=== PATIENT | female | born 1940 | race Caucasian/White ===

== ENCOUNTER 2017-01-05 15:50 | Emergency (ER) | payer MEDICARE ==
[2017-01-05 16:47] VITALS: BP 119/88
--- NOTE | 2017-01-05 17:14 | UC ---
Minor Trauma HPI - HPI Summary HPI Summary: PATIENT PRESENTS S/P MECHANICAL FALL FROM THIS MORNING WITH PAIN IN THE NOSE AND LEFT KNEE. SHE NOTES TO ECCHYMOSIS AROUND THE RIGHT CHEEK, THE NASAL BRIDGE AND SWELLING OVER THE LEFT KNEE. DENIES COLOR OR TEMPERATURE CHANGES OVER THE LEFT KNEE. SHE DENIES PREVIOUS INJURIES TO BOTH. SHE HAS BEEN AMBULATING WELL, BUT WITH PAIN. SHE IS CONCERNED OVER A FX NOSE AND HAS CHEEK PAIN, BUT NO DEFORMITIES ARE NOTED. SHE IS OTHERWISE HEALTHY. - History of Current Complaint Chief Complaint: UCUpperExtremity Stated Complaint: S/P FALL FACE/NOSE LEFT KNEE Time Seen by Provider: 01/05/17 16:59 Hx Obtained From: Patient ?: No Onset/Duration: Sudden Onset Onset Of Pain: Post Accident Severity Initially: Moderate Severity Currently: Moderate Pain Intensity: 5 Pain Scale Used: 0-10 Numeric Mechanism Of Injury: Blunt Trauma Aggravating Factor(s): Ambulation Alleviating Factor(s): Ice Associated Signs And Symptoms: Positive: Ecchymosis, Swelling - Risk Factors Penetrating Injury Risk Factors: Negative Compartment Syndrome Risk Factors: Pain - Allergies/Home Medications Allergies/Adverse Reactions: Allergies Allergy/AdvReac Type Severity Reaction Status Date / Time Aspirin [From Aggrenox] Allergy Vomiting Verified 03/08/16 16:08 Dipyridamole [From Aggrenox] Allergy Vomiting Verified 03/08/16 16:08 PMH/Surg Hx/FS Hx/Imm Hx Previously Healthy: Yes Endocrine History Of: Reports: Thyroid Disease - cyst Cardiovascular History Of: Denies: Deep Vein Thrombosis Respiratory History Of: Denies: Asthma, Pneumonia GI/ History Of: Denies: Renal Disease Other History Of: Anticoagulant Therapy - aggrenox for poss CVA, but doesn't take anymore - Surgical History Surgical History: Yes Surgery Procedure, Year, and Place: BLADDER--2012. HYSTERECTOMY--1983. LEFT FOOT SURGERY - Family History Known Family History: Positive: Unknown - Social History Occupation: Unemployed Lives: With Family Alcohol Use: None Substance Use Type: None Smoking Status (MU): Never Smoked Tobacco Review of Systems Constitutional: Negative Skin: Bruising Eyes: Negative ENT: Negative Respiratory: Negative Cardiovascular: Negative Motor: Decreased ROM - LEFT KNEE ROM LIMITED Neurovascular: Negative Musculoskeletal: Arthralgia - LEFT KNEE WITH SWELLING Neurological: Negative Psychological: Negative All Other Systems Reviewed And Are Negative: Yes Physical Exam Triage Information Reviewed: Yes Appearance: Well-Appearing, No Pain Distress, Well-Nourished, Signs of Trauma Vital Signs: Initial Vital Signs Temp 99.4 F 01/05/17 16:36 Pulse 98 01/05/17 16:36 Resp 18 01/05/17 16:36 BP 119/88 01/05/17 16:36 Pulse Ox 97 01/05/17 16:36 Vital Signs Reviewed: Yes Eye Exam: Normal Eyes: Positive: Conjunctiva Clear ENT: Positive: Other: - DRIED BLOOD IN NARES Dental Exam: Normal Neck exam: Normal Neck: Positive: Supple Respiratory: Positive: Chest non-tender, Lungs clear, Normal breath sounds Cardiovascular Exam: Normal Cardiovascular: Positive: RRR Musculoskeletal: Positive: Strength Limited @ - PAIN WITH LEFT KNEE EXTENSION, ROM Limited @ Neurological Exam: Normal Neurological: Positive: Alert Psychological Exam: Normal Psychological: Positive: Normal Response To Family Skin Exam: Normal Minor Trauma Course/Dx - Course Course Of Treatment: PATIENT SENT TO XRAY - NASAL BONES AND LEFT KNEE. ANTERIOR NASAL BONE FX NOTED. KNEE SWELLING, BUT NO FRACTURE. WILL ENCOURAGE FOLLOW UP WITH EENT IN 1-2 DAYS AND ORTHO NEEDED. PATIENT IS OK WITH DISCHARGE PLAN. AUNDREA WRAPPED KNEE. - Differential Dx/Diagnosis Differential Diagnosis/HQI/PQRI: Contusion(s), Fracture, Hematoma(s), Sprain, Strain Provider Diagnoses: ANTERIOR NASAL FRACTURE Discharge - Discharge Plan Condition: Stable Disposition: HOME Patient Education Materials: Nasal Fracture (ED), Knee Pain (ED) Referrals: Humberto Parrish MD [Medical Doctor] - Alejandro Boo MD [Medical Doctor] - Naman Guerrero MD [Primary Care Provider] - Additional Instructions: Follow up with Dr. Boo. Follow up with Dr. Parrish if symptoms persist. Continue with ice over the knee. Ibuprofen 600mg three times daily for pain and inflammation Keep knee wrapped for 3-4 days
--- NOTE | 2017-01-05 17:43 | RAD ---
INDICATION: Nasal bone injury COMPARISON: None TECHNIQUE: Routine 3 view imaging was performed. FINDINGS: There is a nondisplaced fracture of the tip of the anterior nasal spine. The nasal process of the maxilla is intact. The visualized paranasal sinuses are clear. The soft tissue elements are normal. IMPRESSION: NONDISPLACED FRACTURE ANTERIOR NASAL BONE
--- NOTE | 2017-01-05 17:43 | RAD ---
INDICATION: Left knee injury COMPARISON: None TECHNIQUE: AP, lateral, tunnel, and sunrise views were obtained. FINDINGS: There are no acute bony findings. There is minor patellofemoral spurring. The knee articulates normally. There is prepatellar soft tissue swelling with an abrasion. IMPRESSION: THERE IS PREPATELLAR SOFT TISSUE SWELLING WITH AN ABRASION. THERE IS NO ACUTE FRACTURE.
== END 2017-01-05 18:11 | disposition home or self-care (01) ==
LOC: UCCORT 15:50
DX: S02.2XXA Fracture of nasal bones, initial encounter for closed fracture (principal); S80.212A Abrasion, left knee, initial encounter; W19.XXXA Unspecified fall, initial encounter; Y93.9 Activity, unspecified; Y92.9 Unspecified place or not applicable; Z88.6 Allergy status to analgesic agent; Z90.710 Acquired absence of both cervix and uterus
CPT/HCPCS: 70160; 99211; G0463

== ENCOUNTER 2019-04-04 22:03 | Emergency (ER) | payer MEDICARE, OTHER ==
[2019-04-04] MEDS ORDERED: Tetan/Diph/Pertus SYR(Tdap)* 0.5 ML SYR(BOOSTRIX) use SYR contains LATEX IM ONE (22:20)
[2019-04-04] MEDS ORDERED: Cephalexin CAP* 500 MG PO ONE (22:20)
[2019-04-04 22:21] VITALS: BP 125/55
--- NOTE | 2019-04-04 22:24 | UC ---
Skin Complaint HPI - HPI Summary HPI Summary: 79-year-old woman comes in with a chief complaint of left leg injury. Patient reports a week ago at work she struck her left leg. She's had some pain there but its gradually developed into some redness. There was a abrasion at the site. She has been trying to clean it and is just getting worse. Denies any fevers or chills. No drainage from the wound. - History of Current Complaint Time Seen by Provider: 04/04/19 22:04 Stated Complaint: LEFT LEG INJURY - Allergy/Home Medications Allergies/Adverse Reactions: Allergies Allergy/AdvReac Type Severity Reaction Status Date / Time aspirin [From Aggrenox] Allergy Vomiting Verified 04/04/19 22:22 dipyridamole [From Aggrenox] Allergy Vomiting Verified 04/04/19 22:22 Home Medications: Home Medications Pitavastatin Calcium [Livalo] 4 mg PO DAILY 04/04/19 [History Confirmed 04/04/19 ] PMH/Surg Hx/FS Hx/Imm Hx Previously Healthy: Yes Other History Of: Anticoagulant Therapy - aggrenox for poss CVA, but doesn't take anymore - Surgical History Surgical History: Yes Surgery Procedure, Year, and Place: BLADDER--2012. HYSTERECTOMY--1983. LEFT FOOT SURGERY - Family History Known Family History: Positive: Unknown - Social History Alcohol Use: None Substance Use Type: None Smoking Status (MU): Never Smoked Tobacco Review of Systems All Other Systems Reviewed And Are Negative: Yes Constitutional: Positive: Negative Skin: Positive: Other - SEE HPI Eyes: Positive: Negative ENT: Positive: Negative Respiratory: Positive: Negative Cardiovascular: Positive: Negative Gastrointestinal: Positive: Negative Motor: Positive: Negative Neurovascular: Positive: Negative Musculoskeletal: Positive: Other: - SEE HPI Neurological: Positive: Negative Psychological: Positive: Negative Is Patient Immunocompromised?: No Physical Exam Triage Information Reviewed: Yes Appearance: Well-Appearing, No Pain Distress, Well-Nourished Vital Signs Reviewed: Yes Eye Exam: Normal Eyes: Positive: Conjunctiva Clear Neck: Positive: Supple Respiratory: Positive: Lungs clear, Normal breath sounds, No respiratory distress Cardiovascular: Positive: RRR Musculoskeletal: Positive: Strength Intact, ROM Intact Neurological: Positive: Alert, Other: - Left lower leg is only tender to palpation at the eschar in with the erythematous area. Knee and ankle have full range of motion. Patient denies any pain with plantarflexion and dorsiflexion of the ankle. Only tender with palpation. Psychological: Positive: Age Appropriate Behavior Skin: Positive: Other - On the left lower mo there is a 1 cm eschar with surrounding erythema. It is slightly warm to touch. No drainage no streaking. Course/Dx - Course Course Of Treatment: Review treat with Keflex 500 mg by mouth 4 times a day. Patient received her T tap here in clinic today. Nursing discussed with the patient did not keep using hydrogen peroxide. Also discussed with the patient is any spread of infection or she feels ill that she is with the emergency department for further treatment. - Diagnoses Provider Diagnosis: Cellulitis of left lower leg Discharge - Sign-Out/Discharge Documenting (check all that apply): Patient Departure All imaging exams completed and their final reports reviewed: No Studies - Discharge Plan Condition: Stable Disposition: HOME Prescriptions: Cephalexin CAP* [Keflex CAP*] 500 mg PO QID #[id number] cap Patient Education Materials: Cellulitis (ED) Referrals: Naman Guerrero MD [Primary Care Provider] - Additional Instructions: FOLLOW UP WITH YOUR DOCTOR IF NOT COMPLETELY IMPROVED. GO TO THE EMERGENCY DEPARTMENT IF WORSE; SPREAD OF INFECTION, FEVER, YOU FEEL ILL OR ANY QUESTIONS OR CONCERNS. - Billing Disposition and Condition Condition: STABLE Disposition: Home
== END 2019-04-04 22:37 | disposition home or self-care (01) ==
LOC: UCCORT 22:03
DX: L03.116 Cellulitis of left lower limb (principal); Z23 Encounter for immunization
CPT/HCPCS: 90471; 90715; 99212; A9270-GY; G0463